=== PATIENT | female | born 1985 | race Caucasian/White ===

== ENCOUNTER 2022-06-11 12:37 | Outpatient (CLI) | payer BC, SELFPAY ==
--- NOTE | ~2022-06-11 | MR_ITS ---
EXAMINATION: MR lumbar spine wo con DATE: 06/11/2022 13:15 INDICATION: Lumbosacral spondylosis. Low back pain radiating down the legs. TECHNIQUE: Magnetic resonance imaging (MRI) of the lumbar spine was performed without intravenous con trast. Sequences included sagittal T2-weighted FSE, sagittal T2-weighted FS FSE, sagittal T1-weighted FSE, and axial T2-weighted FSE. COMPARISON: None FINDINGS: There are chronic bilateral L5 pars defects. No spondylolisthesis. There are Schmorl's node s at multiple levels. There is mild chronic height loss of L5 vertebral body posteriorly. There is mi ldly decreased disc height at L4-L5. The distal spinal cord signal intensity is normal. The conus med ullaris is at L1. The following disc levels are specifically discussed: L1-L2: The disc does not extend beyond the endplate margin. There is moderate left facet joint osteoa rthritis. There is no neural foraminal stenosis. There is no central canal stenosis. L2-L3: The disc does not extend beyond the endplate margin. There is mild bilateral facet joint osteo arthritis. There is no neural foraminal stenosis. There is no central canal stenosis. L3-L4: There is a left foraminal protrusion. There is no facet joint osteoarthritis. There is mild le ft neural foraminal stenosis. There is no central canal stenosis. L4-L5: The disc is bulging and has an annular fissure. There is mild left facet joint osteoarthritis. There is mild left neural foraminal stenosis. There is no central canal stenosis. L5-S1: The disc is bulging and has an annular fissure. There is no facet joint osteoarthritis. There is mild bilateral neural foraminal stenosis. There is mild central canal stenosis. IMPRESSION: 1. Mild lumbar spondylosis. 2. Chronic bilateral L5 pars defects. Reviewed, dictated and finalized at location A.
== END 2022-06-11 12:38 | disposition home or self-care (01) ==
PROVIDERS: PCP Physician Assistant
DX: M47.817 Spondylosis without myelopathy or radiculopathy, lumbosacral region (principal)
CPT/HCPCS: 72148